=== PATIENT | female | born 1945 | race Caucasian/White ===

== ENCOUNTER 2017-05-19 20:58 | Inpatient (IN) | payer OTHER ==
--- NOTE | ~2017-05-19 | DS ---
Unit #: [id number] #: [id number] Patient: ALONZO COY I [id number] [address] [place], [place] [address] [id number] I MR#: [id number] NAME: ALONZO COY I. ROOM: 339 Age: 72 Sex: F Admission Date: 05/20/2017 : 1945 Discharge Date: 05/21/2017 Attending Physician: Kalyani Zaman M.D. Primary Care Physician: Kwan Simpson M.D. DISCHARGE SUMMARY SHORT STAY SUMMARY This is a 72-year-old patient who was admitted to the hospital with abdominal pain. Details are as per admission H and P. Right ureteral stone: Patient was seen by urology in consultation, who thought that patient has probably passed a stone because it was not visible on the ultrasound. They have advised patient to go home and followup with them on an outpatient basis. Acute diverticulitis: The patient was seen by Dr. Barba in consultation, who has recommended to treat her at home with antibiotics for one week and then followup with them for a repeat CT of abdomen as there was concern for small abscess. Acute kidney injury: Patient responded well to IV fluids and her creatinine is 1.2 today. Today patient is comfortable, feels good, denies any abdominal pain. She is very anxious to go home. RECOMMENDATIONS ON DISCHARGE Condition is stable. ACTIVITY As tolerated. MEDICATIONS 1. Zocor 10 mg p.o. q.h.s. 2. Multivitamin 1 tablet p.o. daily. 3. Enteric coated aspirin 81 mg p.o. daily. 4. Zyrtec 10 mg p.o. daily p.r.n. 5. Flagyl 500 mg p.o. q.8 hours for one week. 6. Levaquin 500 mg p.o. daily for one week. FOLLOWUP 1. Patient is advised to follow up with primary care physician in one week and have a CBC and BMP done. 2. Patient is advised to follow up with urology as recommended and follow up with [facility] in one week for a repeat CT scan of abdomen for followup on diverticulitis with possible abscess. PLAN Unit #: [id number] #: [id number] Patient: ALONZO COY I 1. The plan was discussed in detail with the patient who showed complete understanding. 2. I will also try to discuss plan with patient's daughter. Dictated by... Saida Diaz/zachary TD: 05/21/2017 11:44 JOB #: [id number] CC: Saida Mendoza M.D. DISCHARGE SUMMARY Page 1 of 1 X Kalyani Zaman MD X DISCHARGE SUMMARY
--- NOTE | ~2017-05-19 | CR7 ---
[facility] A Service of [facility] RADIOLOGY TEXT RESULTS PATIENT: ALONZO COY I LOCATION: [facility] 339-01 : 43 UNIT #: [id number] AGE: [address]: Kalyani Zaman MD SEX: F ORDER DR: [id number] [facility] [address] [place], [place] [address] [id number] I MR#: [id number] Acc #: [id number] NAME: ALONZO COY I. : 1945 SEX: F STUDY DATE/TIME: 05/20/2017 8:28 UNIT: [address] ROOM: [facility] STUDY DESCRIPTION: CR Abdomen Single AP View Attending Physician: Kalyani Zaman M.D. Ordering Physician: Devang León D.O. Primary Care Physician: Kwan Simpson M.D. MEDICAL IMAGING REPORT This report is preliminary unless electronic signature is present EXAM AP abdomen, 05/20/2017. HISTORY Right flank pain. History of right kidney stone; symptoms present for [address] abdomen and pelvis without contrast 05/19/2017 and bilateral renal ultrasound 05/20/2017. FINDINGS The right ureterovesical junction stone seen on previous CT abdomen has no definite plain film correlate. Approximately 2-3 mm right renal stone seen on CT has no definite plain film correlate. Small calcifications in the pelvis on the left are thought to represent benign phleboliths. Tiny round calcification lies adjacent to the right L1 transverse process, thought to be outside the region of the right kidney. There is a nonspecific and nonobstructing bowel gas pattern. No acute osseous abnormalities are seen. IMPRESSION The 2-3 mm right renal stone seen on previous CT and thought to be present on today's ultrasound is not confidently visualized on this radiograph. Additionally, the 5-mm right ureterovesical junction stone seen on CT has no plain film correlate, either. Dictated by... Zuly Jones M.D. [facility] A Service of [facility] RADIOLOGY TEXT RESULTS PATIENT: ALONZO COY I LOCATION: [facility] 339-01 : 43 UNIT #: [id number] AGE: [address]: Kalyani Zaman MD SEX: F ORDER DR: THIS IS AN ELECTRONICALLY VERIFIED REPORT Zuly Jones M.D. at 05/21/2017 8:32 AM Santa TD: 05/20/2017 14:59 JOB #: [id number] MEDICAL IMAGING REPORT Page 1 of 1 COPY
--- NOTE | ~2017-05-19 | HP ---
Unit #: [id number] #: [id number] Patient: ALONZO COY I [id number] [address] [place], [place] [address] [id number] I MR#: [id number] NAME: ALONZO COY I. ROOM: 30346 Age: 72 Sex: F Admission Date: 05/20/2017 : 1945 Attending Physician: Luda Staley M.D. Primary Care Physician: Kwan Simpson M.D. HISTORY AND PHYSICAL CHIEF COMPLAINT Renal colic. HISTORY This pleasant 72-year-old female with known kidney stones, hyperlipidemia, is admitted for renal colic. The patient states that she was well until a week prior to admission when she developed nausea and abdominal discomfort after urinating. The following day experienced abdominal crampy discomfort. She is also having some sinus issues and saw her primary care physician afterwards. She was treated with antibiotics, and actually felt well until yesterday. Yesterday she developed right lower quadrant pain into the right back associated with nausea and vomiting. Denies fever, sweats or chills with the above. Had not experienced urinary symptoms until last evening. She presented to our emergency department late last evening in significant pain. CT scan shows a right 5 mm UVJ stone. Also of note, on the CT scan is mild degree of mid sigmoid diverticulitis. Small adjacent abscess noted, although there is redundant sigmoid within the pelvis. The abscess was thought to be 2.3 x 1.9 cm. In the ER, the patient was bolused with IV fluids, given Zofran, Pepcid and a very tiny dose of Dilaudid. However, became bradycardic after the Dilaudid. Was given Zofran and Flagyl as well. Her current abdominal examination is completely benign. Urine is still pending. PAST MEDICAL HISTORY 1. Hyperlipidemia. 2. Kidney stone. 3. Lung nodules. 4. Environmental allergies. 5. Hysterectomy. 6. Benign breast biopsy. 7. Foot surgery. ALLERGIES Possibly codeine and sulfa. HOME MEDICATIONS Zocor, Zyrtec, aspirin, and vitamins. FAMILY HISTORY Negative for CAD. SOCIAL HISTORY Unit #: [id number] #: [id number] Patient: ALONZO COY I The patient lives with her grandson. She is a lifelong nonsmoker and does not drink alcohol. REVIEW OF SYSTEMS Notable for abdominal pain, nausea, vomiting, back pain, and above mentioned surgeries, hyperlipidemia, environmental allergies. All other systems were reviewed and were otherwise negative. PHYSICAL EXAMINATION GENERAL: Pleasant 72-year-old female who currently is in no acute distress. VITAL SIGNS: Temperature not yet been obtained. Current blood pressure is 152/53, O2 saturation 99%, heart rate was 58 but patient did become somewhat bradycardic after Dilaudid. O2 saturation 100% on room air. HEENT: Eyes - PERRLA. Extraocular muscles are intact. Pharynx is benign. NECK: Supple without adenopathy or thyromegaly. CHEST: Clear. BACK: Without CVA tenderness. CARDIAC: Normal S1 and S2 without S3, S4, or murmur. ABDOMEN: Bowel sounds are presents. Patient has a completely benign abdomen at present. Nontender. No hepatosplenomegaly or masses. EXTREMITIES: Without clubbing, cyanosis or edema. NEUROLOGIC: Patient is awake, alert, and oriented. Cranial nerves are intact. Equal strength throughout. DIAGNOSTIC STUDIES ADMISSION LABS: Hematocrit is 42, white blood count is 14.5, platelet count is 487. SMA 12 - glucose 144. GFR is 49. Normal lipase and LFTs. IMAGING STUDIES: CT scan - sigmoid diverticulosis, mild degree of mid sigmoid diverticulitis. There was a small adjacent abscess measuring 2.3 x 1.9 cm but note there is redundant sigmoid in the pelvis. A right 5 mm UVJ stone noted. Atelectasis or scarring in both lung bases, 5 mm right lower lobe nodule. Exophytic 12 mm cyst upper pole of the left kidney indeterminate. ASSESSMENT 1. Renal colic with a 5 mm right UVJ stone. 2. Questionable left diverticular abscess. Diverticular abscess is seen on CT scan, although symptoms due not seem to be consistent with diverticular abscess. 3. Hyperlipidemia. 4. Mild kidney disease, acute versus chronic. PLANS 1. IV fluids and supportive treatment. 2. Obtain urinalysis. 3. Zosyn and Flagyl for now. 4. Urology and general surgical consultation. 5. SCDs for DVT prophylaxis. 6. Obtain EKG. 7. Repeat labs in the morning. Dictated by Luda Staley M.D. Unit #: [id number] #: [id number] Patient: ALONZO COY I AML/ts TD: 05/20/2017 05:04 JOB #: [id number] HISTORY AND PHYSICAL Page 1 of 1 X Luda Staley MD X HISTORY AND PHYSICAL
--- NOTE | ~2017-05-19 | CO ---
Unit #: [id number] #: [id number] Patient: ALONZO COY I [id number] [address] [place], [place] [address] [id number] MR#: [id number] NAME: ALONZO COY I. ROOM: [facility] Age: 72 Sex: F Admission Date: 05/20/2017 : 1945 Attending Physician: Kalyani Zaman M.D. Primary Care Physician: Kwan Simpson M.D. Consultation Date: 05/20/2017 CONSULTATION REPORT BRIEF SUMMARY The patient is a 72-year-old white female, who was admitted complaining of severe right lower quadrant abdominal pain, which began yesterday. She has known past history for kidney stones and also approximately 2 weeks ago developed severe diffuse abdominal pain, was treated with oral antibiotics and did improve up until yesterday. She has had some nausea without vomiting. No significant fever or chills. Bowel movements have been regular and she has had no other major symptoms. She has had a known past history for kidney stones and has been followed by Dr. Hurtado. Her CAT scan in the emergency room revealed evidence of a stone at the right UVJ and also some evidence of mild diverticulitis of the sigmoid colon with a small 2 cm abscess next to it walled off. The white blood cell count was elevated at approximately 14,000. Rest of her labs were fairly not remarkable. PAST MEDICAL HISTORY She denies any significant medical illnesses except for kidney stones. MEDICATIONS There is a list pending at present. The patient is unsure of exactly what she takes. ALLERGIES None known. TRANSFUSIONS No history of transfusion reaction in the past. FAMILY HISTORY Noncontributory. SOCIAL HISTORY The patient is single, nonsmoker, nondrinker. Has normal good appetite. No recent weight change. IMMUNIZATIONS Up to date. REVIEW OF SYSTEMS Twelve-system review has been performed, which was not remarkable except for that noted in the present illness. PHYSICAL EXAMINATION VITAL SIGNS: Temperature 98.6, pulse 58, respirations 19, blood pressure Unit #: [id number] #: [id number] Patient: ALONZO COY I 120/60. GENERAL DESCRIPTION: The patient is a well-developed, well-nourished 72-year-old white female, who appears younger than her age, in no acute distress. HEENT: Not remarkable. NECK: Supple. CHEST: There is equal bilateral expansion with bilateral equal breath sounds. LUNGS: Clear bilaterally. HEART: Regular rhythm without murmurs or gallops. There is no evidence of cardiomegaly clinically. ABDOMEN: Soft. Nontender without mass or organomegaly. There is no gross abdominal distention. No guarding or rebound. Active bowel sounds are present. No evidence of ascites or hernias. EXTREMITIES: Full range of motion without limitation. There is no evidence of peripheral edema. BACK: There is no CVA tenderness. NEUROLOGIC: Grossly intact. IMPRESSION The patient has some chronic smoldering diverticulitis, which did improve on oral antibiotics. She also has a stone at her right ureterovesical junction probably responsible for the pain that brought her into the emergency room, which suggests at this time followup for the stone and possible extraction and with regard to her diverticulitis, would merely treat this with IV antibiotics for now and then oral antibiotics when she goes home. There was no reason to be concerned about the small abscess present. Dictated by... Sebas Mike Jr., MMayank. TANIYA/keith TD: 05/21/2017 03:00 JOB #: [id number] CONSULTATION REPORT Page 1 of 1 X Sebas Mike MD X CONSULTATION REPORT
--- NOTE | ~2017-05-19 | CT4 ---
[facility] A Service of [facility] & [facility] RADIOLOGY TEXT RESULTS PATIENT: ALONZO COY I LOCATION: [facility] [id number] : 43 UNIT #: [id number] AGE: [address]: Luda Staley MD SEX: F ORDER DR: [id number] [facility] [address] [place], [place] [address] [id number] E MR#: [id number] Acc #: [id number] NAME: ALONZO COY I. : 1945 SEX: F STUDY DATE/TIME: 05/19/2017 22:19 UNIT: [facility] ROOM: STUDY DESCRIPTION: CT Abd and Pelv Wo Cont Attending Physician: Devang León D.O. Ordering Physician: Devang León D.O. Primary Care Physician: Kwan Simpson M.D. MEDICAL IMAGING REPORT This report is preliminary unless electronic signature is present EXAM CT abdomen and pelvis 05/19/2017 at 22:19 INDICATION Abdominal pain and back pain with nausea and vomiting and right flank pain that started today. TECHNIQUE Axial images were obtained through the abdomen and pelvis without contrast. Multiplanar reformats were obtained. No comparison. This CT exam was performed with one or more of the following radiation dose reduction techniques: automatic exposure control, adjustment of mA and/or kV according to patient size, and iterative reconstruction. FINDINGS ABDOMEN: There is atelectasis or scarring in both lung bases. There is a 5 mm right lower lobe nodule. Consider chest CT followup in 6 months. Gallbladder is normal. There is mild right hydronephrosis and hydroureter secondary to a 5 mm stone at the right ureterovesical junction. There is a small nonobstructing stone in the right kidney. No other stones are seen. There is an exophytic 12 mm lesion in the upper pole of the left kidney. It is indeterminate. Outpatient renal ultrasound recommended for followup. Unenhanced solid organs are otherwise normal. There is a small hiatal hernia. Unopacified GI tract is otherwise normal. PELVIS: The uterus is surgically absent. There is diffuse. Sigmoid diverticulosis. There is a mild degree of mid sigmoid diverticulitis. There is a small adjacent abscess which is not amenable to percutaneous drainage. It measures 2.3 cm x 1.9 cm. Please note that there is redundant sigmoid within the pelvis. The appendix is normal. [facility] A Service of [facility] RADIOLOGY TEXT RESULTS PATIENT: ALONZO COY I LOCATION: [facility] [address]25-49 : 43 UNIT #: [id number] AGE: [address]: Luda Staley MD SEX: F ORDER DR: IMPRESSION 1. Mild right hydronephrosis secondary to a 5 mm stone at the right ureterovesical junction. There is also a small nonobstructing stone in the right kidney. 2. Acute mid sigmoid diverticulitis. There is a small adjacent 2.3 cm abscess which is not amenable to percutaneous drainage. 3. Indeterminate 12 mm lesion in the upper pole of the left 4. A 5 mm noncalcified right lower lobe nodule. Chest CT followup in 6 months is recommended. There is atelectasis or scarring in both lung bases. 5. Hysterectomy. Dictated by... Joao Dexter Jr., M.D. THIS IS AN ELECTRONICALLY VERIFIED REPORT Joao Dexter Jr., M.D. at 05/20/2017 6:08 AM CLINTON/frandy TD: 05/19/2017 23:02 JOB #: [id number] MEDICAL IMAGING REPORT Page 1 of 1 COPY
--- NOTE | ~2017-05-19 | EKG ---
PATIENT: ALONZO COY UNIT #: [id number] Ventricular Rate: 51 BPM Atrial Rate: 51 BPM P-R Interval: 152 ms QRS Duration: 94 ms Q-T Interval: 476 ms QTC Calculation(Bezet): 438 ms P [place]: 60 degrees Calculated R [place]: -31 degrees Calculated T [place]: 31 degrees Diagnosis Line: Sinus bradycardia with 1st degree A-V block Diagnosis Line: Left axis deviation Diagnosis Line: Low voltage QRS Diagnosis Line: No previous ECGs available Diagnosis Line: Confirmed by JENNY FINCH MD ([id number]) on Diagnosis Line: 05/21/2017 6:38:46 AM INTERPRETING MD: FATIMAH
--- NOTE | ~2017-05-19 | CO ---
Unit #: [id number] #: [id number] Patient: ALONZO COY I [id number] [address] [place], [place] [address] [id number] I MR#: [id number] NAME: ALONZO COY I. ROOM: [facility] Age: 72 Sex: F Admission Date: 05/20/2017 : 1945 Attending Physician: Kalyani Zaman M.D. Primary Care Physician: Kwan Simpson M.D. Consultation Date: 05/20/2017 CONSULTATION REPORT REASON FOR CONSULTATION Right ureteral stone. HISTORY OF PRESENT ILLNESS This pleasant 72-year-old woman has known about a kidney stone on the right side for many years and had seen Dr. Hurtado for this in the past as well as evaluation of microscopic hematuria. She believed she was released from followup over a year ago. She has never been symptomatic from this or any stone, but developed severe pain yesterday in the right groin and flank prompting Emergency Department admission. She had nausea and vomiting, which have resolved. No fever or chills. She is being admitted and has been seen by General Surgery for CT findings of acute sigmoid diverticulitis, although without strong clinical correlation. Urologically, she has no voiding difficulties or symptoms, and Contreras catheter appears to have been placed for nonmedical reasons in the Emergency Department. She does have minimal stress incontinence, but does not wear a pad. She has no frequency, urgency, hesitancy, or trouble emptying. She has no history of urinary infections or any recent gross hematuria. PAST MEDICAL HISTORY Includes hyperlipidemia as well as known kidney stone, and history of lung nodules, released from followup. PAST SURGICAL HISTORY Hysterectomy, partial vaginal; foot surgery; and benign breast biopsy. MEDICATIONS On admission, Zocor, Zyrtec, aspirin, and vitamins. ALLERGIES Possibly codeine and sulfa. FAMILY HISTORY Noncontributory. SOCIAL HISTORY Never smoked significantly. Does not drink alcohol. Lives with grandson. REVIEW OF SYSTEMS Other than the presenting symptoms, which have resolved, she denies any constipation, diarrhea, or left lower quadrant pain. Unit #: [id number] #: [id number] Patient: ALONZO COY I PHYSICAL EXAMINATION GENERAL: The patient is pleasant, alert, sitting up comfortably. HEENT: Unremarkable. ABDOMEN: Somewhat large, but soft and nontender. No masses, hernia scars, or organomegaly. No right lower quadrant tenderness. No right CVA tenderness. EXTREMITIES: No edema. Neurologic: Intact. PELVIC: Deferred. DIAGNOSTIC STUDIES LABORATORY RESULTS: Laboratories include creatinine of 1.3, eGFR of 49. Urinalysis; 100 to 200 rbc's, no evidence of infection. WBC 14.5 down from 16. IMAGING STUDIES: CT scan shows a 5-mm stone very distally in the right ureter with minimal right-sided hydronephrosis. There is a tiny ipsilateral right renal stone also. Of note, there is a 12 mm exophytic lesion of the left kidney, indeterminate cyst, possible mass. IMPRESSION 1. The patient has a medium sized distal left ureteral stone, which may have passed, but has certainly not been symptomatic for 10 hours and is best observed at this point. The patient agrees and does not wish to entertain ureteroscopy at this time. 2. Indeterminate left renal lesion. 3. Question of diverticulitis, admission by Medicine with surgical followup. PLAN Recommend to discontinue Contreras catheter on arrival to floor, strain all urine, KUB en route to floor, and renal ultrasound when convenient. May advance diet from viewpoint if colic returns. May make n.p.o. again tonight. Thank you for the consultation. Dictated by... Joao Agarwal M.D. CHINO/keith TD: 05/21/2017 03:51 JOB #: [id number] Luda Staley M.D. CONSULTATION REPORT Page 1 of 1 X Joao Agarwal MD X CONSULTATION REPORT
--- NOTE | ~2017-05-19 | US77 ---
[facility] A Service of [facility] & [facility] RADIOLOGY TEXT RESULTS PATIENT: ALONZO COY I LOCATION: [facility] 339-01 : 43 UNIT #: [id number] AGE: [address]: Kalyani Zaman MD SEX: F ORDER DR: [id number] [facility] [address] [place], [place] [address] [id number] I MR#: [id number] Acc #: [id number] NAME: ALONZO COY I. : 1945 SEX: F STUDY DATE/TIME: 05/20/2017 9:52 UNIT: [address] ROOM: [facility] STUDY DESCRIPTION: US Kidney Bilateral Complete Attending Physician: Kalyani Zaman M.D. Ordering Physician: Devang León D.O. Primary Care Physician: Kwan Simpson M.D. MEDICAL IMAGING REPORT This report is preliminary unless electronic signature is present EXAM Bilateral renal ultrasound DATE 05/20/2017 HISTORY Right flank pain for 2 days, stone on CT. COMPARISON CT abdomen and pelvis without contrast 05/19/2017. FINDINGS The right kidney measures 9.8 cm and the left kidney measures 10.1 cm in length. And 3 mm echogenic nonshadowing focus is demonstrated within the right mid to lower renal pole thought to correspond to nonobstructing stones seen on previous CT. Only very mild right hydronephrosis is present, and no left hydronephrosis is seen. No suspicious cystic or solid renal mass is identified. More specifically, the indeterminate 1.2 cm lesion seen at the left upper renal pole on yesterday's CT has no definite correlate on today's ultrasound. The urinary bladder is largely decompressed and appears unremarkable. No definite stone is seen within the urinary bladder. IMPRESSION 1. Very mild residual right hydronephrosis. No obstructing etiology is seen on this examination. The right ureterovesical junction stone seen on yesterday's CT has no sonographic correlate. 2. Previously described 1.2 cm indeterminate left renal lesion on yesterday's CT is not visible sonographically. As such, cystic or solid left renal mass cannot be excluded. This can be further evaluated with CT or MRI abdomen without and with contrast renal mass protocol on a non emergent basis. [facility] A Service of [facility] RADIOLOGY TEXT RESULTS PATIENT: ALONZO COY I LOCATION: [facility] 339-01 : 43 UNIT #: [id number] AGE: [address]: Kalyani Zaman MD SEX: F ORDER DR: 3. Suspected 3 mm nonobstructing stone in the right lower renal pole corresponding to yesterday's CT. Dictated by... Zuly Jones M.D. THIS IS AN ELECTRONICALLY VERIFIED REPORT Zuly Jones M.D. at 05/21/2017 8:32 AM MELINDA/carmelo TD: 05/20/2017 14:41 JOB #: [id number] MEDICAL IMAGING REPORT Page 1 of 1 COPY
[2017-05-19 22:29] LABS: BASOPHIL# 0.1 X10e3 (0-0.3); BASOPHIL% 0.4 % (0-2.5); EOSINOPHIL% 0.3 % (0.0-7.0); HEMATOCRIT 41.9 % (35.0-45.0); HEMOGLOBIN 13.8 gm/dL (12.0-16.0); LYMPHOCYTE# 1.3 X10e3 (1.0-3.5); LYMPHOCYTE% 9.1 % (17.0-45.0); MEAN CELL VOLUME 93.6 FL (83-96); MEAN CORPUSCULAR HEMOGLOBIN 30.9 PG (28-34); MEAN PLATELET VOLUME 7.7 FL (6.5-11.5); MONOCYTE# 0.8 X10e3 (0-1.0); MONOCYTE% 5.3 % (3.0-12.0); NEUTROPHIL# 12.3 X10e3 (1.5-7.1); NEUTROPHIL% 84.9 % (40-75); PLATELET COUNT 487 X10e3 (140-420); RED BLOOD COUNT 4.47 X10e (3.90-5.30); RED CELL DISTRIBUTION WIDTH 13.1 % (11.0-15.5); WHITE BLOOD COUNT 14.5 X10e3 (4.0-10.5)
[2017-05-19 22:30] LABS: DIFF IND NO
[2017-05-19 22:54] LABS: ALBUMIN SERUM 3.6 g/dL (3.5-5.0); BILIRUBIN, DIRECT 0.2 mg/dL (0.0-0.2); BILIRUBIN,TOTAL 1.2 mg/dL (0.2-2.0); CALCIUM SERUM 9.1 mg/dL (8.4-10.2); CREATININE SERUM 1.1 mg/dL (0.6-1.4); GLOM FILT RATE Estimated 49.4 mL/min (>60); POTASSIUM 3.9 mmol/L (3.5-5.1); PROTEIN TOTAL SERUM 7.2 g/dL (6.0-8.3)
[2017-05-20 03:00] LABS: URINE SOURCE CLEAN CATCH
[2017-05-20 03:05] LABS: URINE APPEARANCE CLEAR; URINE BILIRUBIN NEG (NEG); URINE BLOOD 3+ (NEG); URINE COLOR YELLOW; URINE GLUCOSE NEG (NEG); URINE KETONE TRACE (NEG); URINE LEUKOCYTE ESTERASE NEG (NEG); URINE NITRATE NEG (NEG); URINE PROTEIN NEG (NEG); URINE SPECIFIC GRAVITY 1.012 (1.003-1.035); URINE UROBILINOGEN 0.2 MG/DL (NEG)
[2017-05-20 03:10] LABS: CULTURE INDICATED? NO; URBCS1 AUWI 100-200 /[HPF] (0-2); URINE BACTERIA AUWI NEG (NEGATIVE); URINE PH 9.5 (5-8); URINE SQUAMOUS EPITHELIAL CELL NONE SEEN /[HPF]
[2017-05-20 05:38] LABS: BASOPHIL# 0.1 X10e3 (0-0.3); BASOPHIL% 0.5 % (0-2.5); HEMATOCRIT 38.6 % (35.0-45.0); HEMOGLOBIN 12.6 gm/dL (12.0-16.0); LYMPHOCYTE# 1.2 X10e3 (1.0-3.5); LYMPHOCYTE% 7.4 % (17.0-45.0); MEAN CELL VOLUME 94.1 FL (83-96); MEAN CORPUSCULAR HEMOGLOBIN 30.7 PG (28-34); MEAN CORPUSCULAR HGB CONC 32.6 g/dL (30-36); MEAN PLATELET VOLUME 7.6 FL (6.5-11.5); MONOCYTE# 0.8 X10e3 (0-1.0); MONOCYTE% 4.7 % (3.0-12.0); NEUTROPHIL# 14.5 X10e3 (1.5-7.1); NEUTROPHIL% 87.4 % (40-75); PLATELET COUNT 436 X10e3 (140-420); RED CELL DISTRIBUTION WIDTH 13.4 % (11.0-15.5); WHITE BLOOD COUNT 16.6 X10e3 (4.0-10.5)
[2017-05-20 05:40] LABS: DIFF IND NO
[2017-05-20 06:06] LABS: BUN/CREATININE RATIO 16.92; CALCIUM SERUM 8.5 mg/dL (8.4-10.2); CREATININE SERUM 1.3 mg/dL (0.6-1.4); GLOM FILT RATE Estimated 40.4 mL/min (>60); POTASSIUM 4.2 mmol/L (3.5-5.1)
[2017-05-20] MEDS ORDERED: ZOCOR PO (10:20)
[2017-05-20] MEDS ORDERED: RESTASIS1 EACH OU (10:20)
[2017-05-20] MEDS ORDERED: ASPIRIN81 M2 PO (10:21)
[2017-05-20] MEDS ORDERED: ZYRTEC10 M2 PO (10:21)
[2017-05-20] MEDS ORDERED: MULTIVITAMINS1 EAC3 PO (10:21)
[2017-05-20] MEDS ORDERED: DOXYCYCLINE HY100 M3 PO (10:36)
[2017-05-20] MEDS ORDERED: MEDROL DOSEPAK4 MG (10:36)
[2017-05-20] MEDS ORDERED: PATIENT'S PHARMACY (10:38)
[2017-05-21 05:45] LABS: HEMATOCRIT 36.8 % (35.0-45.0); HEMOGLOBIN 11.7 gm/dL (12.0-16.0); MEAN CELL VOLUME 95.1 FL (83-96); MEAN CORPUSCULAR HEMOGLOBIN 30.4 PG (28-34); MEAN CORPUSCULAR HGB CONC 31.9 g/dL (30-36); MEAN PLATELET VOLUME 7.5 FL (6.5-11.5); RED BLOOD COUNT 3.86 X10e (3.90-5.30); RED CELL DISTRIBUTION WIDTH 13.7 % (11.0-15.5); WHITE BLOOD COUNT 11.3 X10e3 (4.0-10.5)
[2017-05-21 06:42] LABS: ALBUMIN SERUM 2.5 g/dL (3.5-5.0); BILIRUBIN,TOTAL 1.4 mg/dL (0.2-2.0); BUN/CREATININE RATIO 12.5; CALCIUM SERUM 8.3 mg/dL (8.4-10.2); CREATININE SERUM 1.2 mg/dL (0.6-1.4); GLOM FILT RATE Estimated 44.5 mL/min (>60); POTASSIUM 4.2 mmol/L (3.5-5.1); PROTEIN TOTAL SERUM 5.7 g/dL (6.0-8.3)
[2017-05-21] MEDS ORDERED: FLAGYL PO ×2 (12:39→12:49)
[2017-05-21] MEDS ORDERED: LEVAQUIN PO (12:40)
== END 2017-05-21 14:39 | disposition home or self-care (01) | DRG 392 ==
LOC: CED 20:58 → CEDOF 05-20 01:30 → C3A PCU 05-20 01:30 → CEDOF 05-20 01:46 → CED 05-20 01:46 → CEDOF 05-20 07:48 → C3A PCU 05-20 13:40 → CEDOF 05-20 13:40 → C3A PCU 05-21 14:39
PROVIDERS: Emergency Medicine; Internal Medicine; Surgery
DX: K57.80 Diverticulitis of intestine, part unspecified, with perforation and abscess without bleeding (principal); N17.9 Acute kidney failure, unspecified; N20.2 Calculus of kidney with calculus of ureter; E78.5 Hyperlipidemia, unspecified; Z90.710 Acquired absence of both cervix and uterus; Z79.82 Long term (current) use of aspirin; Z88.2 Allergy status to sulfonamides
CPT/HCPCS: 36415; 74000; 74176; 76770; 80048; 80053; 80076; 81003; 83690; 85025; 85027; 93005; 96361; 96365; 96375; 99285; J1170; J2405; J2543

== ENCOUNTER → 2017-08-09 | Outpatient (CLI) | payer OTHER ==
[~2017-08-09] MED LIST: ASPIRIN81 M2 PO; DOXYCYCLINE HY100 M3 PO; FLAGYL PO; LEVAQUIN PO; MEDROL DOSEPAK4 MG; MULTIVITAMINS1 EAC3 PO; PATIENT'S PHARMACY; RESTASIS1 EACH OU; ZOCOR PO; ZYRTEC10 M2 PO
--- NOTE | ~2017-08-09 | MY29 ---
[facility] A Service of [facility] RADIOLOGY TEXT RESULTS PATIENT: ALONZO COY LOCATION: [facility] : 41 UNIT #: [id number] AGE: [address]: Nisreen Dumont MD SEX: F ORDER DR: [id number] [facility] [address] [place], [place] [address] [id number] O MR#: [id number] Acc #: [id number] NAME: ALONZO COY : 1945 SEX: F STUDY DATE/TIME: 08/09/2017 16:35 UNIT: [facility] ROOM: STUDY DESCRIPTION: [facility] SCREENING W/ CAD BILAT Attending Physician: Nisreen Dumont M.D. Ordering Physician: Nisreen Dumont M.D. Primary Care Physician: Kwan Simpson M.D. MEDICAL IMAGING REPORT This report is preliminary unless electronic signature is present EXAM Bilateral digital screening mammogram with CAD, 08/09/2017 HISTORY Family history of breast cancer in her daughter. No personal history of breast cancer. History of benign breast surgeries bilaterally. COMPARISON Bilateral screening mammogram 03/06/2016, 02/08/2015, 11/24/2013. FINDINGS CC and MLO views were obtained of each breast utilizing digital technique and reviewed with an FDA-approved CAD device. Linear markers were placed over each breast denoting surgical scars. Curvilinear densities in the superior margins of each breast may represent postsurgical architectural distortion, but these findings are unchanged. No new or developing nodules are identified. No suspicious cluster of microcalcifications. IMPRESSION Routine bilateral screening mammogram is recommended in one year. Patients over the age of 40 are entered into a reminder system with target due date for the next mammogram. A result letter will also be sent to the patient. BIRADS: 2 Benign Finding Dictated by... Zuly Jones M.D. THIS IS AN ELECTRONICALLY VERIFIED REPORT [facility] A Service of [facility] RADIOLOGY TEXT RESULTS PATIENT: ALONZO COY LOCATION: [facility] #: [id number] : 41 UNIT #: [id number] AGE: [address]: Nisreen Dumont MD SEX: F ORDER DR: Zuly Jones M.D. at 08/10/2017 5:03 PM [place] TD: 08/10/2017 15:31 JOB #: [id number] MEDICAL IMAGING REPORT Page 1 of 1 COPY
== END | disposition home or self-care (01) ==
LOC: CWCC 16:25
DX: Z12.31 Encounter for screening mammogram for malignant neoplasm of breast (principal); Z98.890 Other specified postprocedural states; Z91.89 Other specified personal risk factors, not elsewhere classified
CPT/HCPCS: G0202